=== PATIENT | male | born 1990 | race African-American/Black ===

== ENCOUNTER 2016-10-18 13:29 | Emergency (ER) | payer SELFPAY ==
[~2016-10-18] VITALS: Ht 177.8 cm; Wt 76.0 kg
[2016-10-18 13:44] VITALS: Ht 177.8 cm; Wt 76.0 kg
[2016-10-18] MEDS ORDERED: ONDANSETRON (ODT) 4 MG TAB ODT STA (15:25)
[2016-10-18] MEDS ORDERED: ACETAMINOPHEN 500 MG TAB PO STA (15:25)
[2016-10-18] MEDS ORDERED: IBUPROFEN 800 MG TAB PO ONE (15:30)
[2016-10-18] MEDS ORDERED: OSLT75C PO (16:07)
[2016-10-18] MEDS ORDERED: ONDA4TAB8 PO (16:07)
[2016-10-18] MEDS ORDERED: IBUP800T25 PO (16:07)
[2016-10-18] MEDS ORDERED: ACET500C5 PO (16:08)
[2016-10-18] MEDS ORDERED: UDROBDM PO (16:08)
--- NOTE | 2016-10-18 16:16 | ERD ---
ER Documentation Chief Complaint Date/Time DATE: 10/18/16 TIME: 16:13 Chief Complaint flu like symptoms since yesterday,body aches,fever,vomiting HPI This is a 26-year-old male because of the emergency department today continued headache, sore throat, runny nose, cough bodyaches and vomiting that started last night. States he has taken NyQuil and DayQuil with limited improvement. Denies any diarrhea and earache ROS All systems reviewed and are negative except as per history of present illness. Medications Home Meds Active Scripts Guaifenesin-Dextromethorphan* (Robitussin* DM) 100MG/10MG/5ML Syrup, 10 ML PO Q4H Y for COUGH for 5 Days, ML Prov:BILL FERRARA PA-C 10/18/16 Acetaminophen* (Tylophen*) 500 Mg Capsule, 1 CAP PO Q6H Y for PAIN AND OR ELEVATED TEMP, #30 CAP Prov:BILL FERRARA PA-C 10/18/16 Ibuprofen* (Motrin*) 800 Mg Tab, 800 MG PO Q6, #30 TAB Prov:BILL FERRARA PA-C 10/18/16 Oseltamivir Phosphate* (Tamiflu*) 75 Mg Capsule, 75 MG PO BID for 5 Days, CAP Prov:BILL FERRARA PA-C 10/18/16 Ondansetron Hcl* (Zofran*) 4 Mg Tablet, 4 MG PO Q6H for NAUSEA AND/OR VOMITING, #30 TAB Prov:BILL FERRARA PA-C 10/18/16 PMhx/Soc History of Surgery: No Anesthesia Reaction: No Hx Neurological Disorder: No Hx Respiratory Disorders: No Hx Cardiac Disorders: No Hx Psychiatric Problems: No Hx Miscellaneous Medical Probl: No Hx Alcohol Use: No Hx Substance Use: No Hx Tobacco Use: No Physical Exam Vitals Vital Signs Date Time Temp Pulse Resp B/P Pulse Ox O2 Delivery O2 Flow Rate FiO2 10/18/16 13:44 101.3 111 24 129/78 99 Physical Exam Const: No acute distress Head: Atraumatic Eyes: Junk to the injected with erythema ENT: TMs normal. Nose bilateral clear drainage. Throat no erythema no exudate Neck: Full range of motion..~ No meningismus. Resp: Clear to auscultation bilaterally. No absent breath sounds. No wheezing. Cardio: Regular rate and rhythm, no murmurs Abd: Soft, non tender, non distended. Normal bowel sounds no right lower quadrant pain. No tenderness at McBurney's. No left lower quadrant pain. Skin: No petechiae or rashes Neur: Awake and alert Psych: Normal Mood and Affect Results 24 hrs Current Medications Medications (Trade) Dose Ordered Sig/Venancio Route PRN Reason Start Time Stop Time Status Last Admin Dose Admin Ibuprofen (Motrin) 800 mg ONCE ONCE PO 10/18/16 15:30 10/18/16 15:31 DC 10/18/16 15:39 Acetaminophen (Tylenol Tab) 500 mg ONCE STAT PO 10/18/16 15:25 10/18/16 15:27 DC 10/18/16 15:39 Ondansetron HCl (Zofran Odt) 4 mg ONCE STAT ODT 10/18/16 15:25 10/18/16 15:27 DC 10/18/16 15:39 Procedures/MDM This 26-year-old male who presents today with multiple symptoms consistent with influenza-like symptoms. Patient was febrile at 101.3. His respirations were 99 he was tachycardic at 111. I do not feel that the patient requires auditory workup or imaging at this time. I have low suspicion for strep pharyngitis, peritonsillar abscess, retropharyngeal abscess, otitis media, PNA, sinusitis, abscess, meningitis, sepsis, or other acute infectious bacterial process. Patient has no abdominal pain on physical exam. Low suspicion for acute surgical abdomen. Patient was given Tylenol, Motrin and Zofran here in the emergency department. Patient's symptoms started last night and therefore he will be given a prescription for Tamiflu. I have also given a prescription for Talwin, Motrin, Zofran and Robitussin. At this time the patient is stable for discharge and outpatient management. They should follow up with their PCP in the next 1-2. They may return to the emergency department sooner if symptoms persist or worsen. Patient understood and agreed with the plan. Departure Diagnosis: Primary Impression: Influenza-like symptoms Condition: Fair Patient Instructions: Influenza (Adult) Referrals: COMMUNITY CLINICS YOU HAVE RECEIVED A MEDICAL SCREENING EXAM AND THE RESULTS INDICATE THAT YOU DO NOT HAVE A CONDITION THAT REQUIRES URGENT TREATMENT IN THE EMERGENCY DEPARTMENT. FURTHER EVALUATION AND TREATMENT OF YOUR CONDITION CAN WAIT UNTIL YOU ARE SEEN IN YOUR DOCTORS OFFICE WITHIN THE NEXT 1-2 DAYS. IT IS YOUR RESPONSIBILITY TO MAKE AN APPOINTMENT FOR FOLOW-UP CARE. IF YOU HAVE A PRIMARY DOCTOR --you should call your primary doctor and schedule an appointment IF YOU DO NOT HAVE A PRIMARY DOCTOR YOU CAN CALL OUR PHYSICIAN REFERRAL HOTLINE AT IF YOU CAN NOT AFFORD TO SEE A PHYSICIAN YOU CAN CHOSE FROM THE FOLLOWING [facility] [address] [facility] [address] [facility] [facility] [address] [facility] [address] [facility] [address] [facility]. [facility]. [address] Additional Instructions: Call your primary care doctor TOMORROW for an appointment during the next 1-2 days.See the doctor sooner or return here if your condition worsens before your appointment time. Tamiflu for flulike symptoms Robitussin for cough Tylenol every 4 hours or Motrin every 6 hours for fever or body aches Zofran for nausea or vomiting BILL FERRARA PA-C Oct 18, 2016 16:16
[2016-10-18 16:19] VITALS: TEMP 99.7
== END 2016-10-18 16:20 | disposition home or self-care (01) ==
LOC: FTE 13:29
DX: R51 Headache (principal); J02.9 Acute pharyngitis, unspecified; R09.89 Other specified symptoms and signs involving the circulatory and respiratory systems; R05 Cough
CPT/HCPCS: 99284